=== PATIENT | male | born 1945 | race Caucasian/White ===

== ENCOUNTER 2018-06-08 05:33 | Day surgery (SDC) | payer OTHER ==
[~2018-06-08] VITALS: Ht 175.3 cm; Wt 84.4 kg
--- NOTE | ~2018-06-08 | PATH ---
[facility] [place] [address] PATHOLOGY RPT PROCEDURE Name: RICH CHOUDHURY Room #: DEP [facility] M..#: [id number] Admission: 06/08/18 Date of : 47 Discharge: 06/08/18 Report #: [id number] Path Case #: [id number] [facility] Accession Number: [id number] . 01 Material submitted: . PART A: TUMOR RIGHT MEDIAL CANTHUS - FS PART B: ADDITIONAL MEDIAL RIGHT CANTHUS TUMOR MARGIN . 01 Clinical history: . Possible basal cell carcinoma right medial canthus. . 02 Diagnosis: A. Skin, tumor right medial canthus, excision: - BASAL CELL CARCINOMA. - Margins of resection free of invasive malignancy. - MULTIFOCAL SUPERFICIAL BASAL CELL CARCINOMA. - TINY FOCUS OF SUPERFICIAL BASAL CELL CARCINOMA PRESENT AT MEDIAL/INFERIOR MARGIN. . B. Skin, additional medial right canthus margin, re-excision: - Mild chronic inflammation. - No residual malignancy present. . (IUV:dale; 06/09/2018) MBR/06/09/2018 . 02 Electronically signed: . Merle Reyes MD, Pathologist NPI- [id number] . 01 Gross description: . A. The specimen is received fresh from the OR labeled with the patient's name, "tumor right medial canthus " consists of a thin strip of skin measuring 2. 5 x 0.5 x 0.3 cm. It is oriented as superior, medial, inferior and lateral, these are designated 12:00, 3:00, 6:00, and 9:00 respectively. The 12:00, the 3:00-6:00 is inked black including the deep margin, the 6:00-9:00 is inked blue and the 9:00-12:00 is inked green. At this point specimen is serially sectioned into multiple pieces and submitted in entirety for frozen section as is FSA1. . B. The specimen is received fresh from the OR and labeled with the patient's name, "additional medial right canthus tumor margin" consists of a strip of skin measuring 0.7 x 0.2 x 0.3 cm. It is oriented as medial and inferior. The new margin of this specimen is inked blue. At this point specimen is serially sectioned. The old margin is not inked. The specimen is entirely submitted for permanent sections only as B1. . [address] [address] PATHOLOGY RPT PROCEDURE Name: RICH CHOUDHURY Room #: DEP [facility] Ricardo#: [id number] Admission: 06/08/18 Date of : 47 Discharge: 06/08/18 Report #: [id number] Path Case #: [id number] (IUV:at;06/08/2018) . . FROZEN SECTION DIAGNOSIS (Merle Reyes) . FSA1. Tumor right medial canthus, excision: - Invasive basal cell carcinoma, no invasive tumor at margins, superficial basal cell carcinoma at medial/inferior margin. . These findings are discussed with Dr. Blair Woodward in OR 6 and a written report is placed in the patient's chart. . (IUV:at;06/08/2018) . Frozen section performed at [facility], [address] [place] [address], [place] [address]. SY/SYC . 02 Pathologist provided ICD-10: C44.111, L08.9 . 02 CPT . 769575, 660476, [id number] Specimen Comment: A courtesy copy of this report has been sent to Specimen Comment: [phone]. Specimen Comment: Report sent to Performed at: [address], [place], [place] [id number] MD Bo Carlisle MD Phone: [phone] Performed at: [address], [place], [place] [id number] MD Merle Reyes MD Phone: [phone]
--- NOTE | ~2018-06-08 | O ---
[facility] [place] [address] [place] [address] OPERATIVE REPORT Name: RICH CHOUDHURY Room #: 150-14 [facility]..#: [id number] Admission: 06/08/18 Attend Phys: Blair Woodward MD Discharge: Date of : 47 Report #: [id number] THIS REPORT FOR: //name// CC: GORGE Galeano Physician staff Blair Woodward DATE OF SERVICE: 06/08/2018 PREOPERATIVE DIAGNOSIS: Tumor of right medial canthus. POSTOPERATIVE DIAGNOSIS: Basal cell carcinoma of right medial canthus, right upper lid and right lower lid. SURGEON: Blair Woodward M.D. SOCIAL SERVICES SPECIALIST: None. ANESTHESIA: MAC. COMPLICATIONS: None. INDICATIONS FOR SURGERY: This pleasant 73-year-old gentleman has a nodular ulcerative lesion that is in his medial canthus of the right eye that extends on to the medial most aspect of the upper and lower lids. He presents today for excision of this lesion with frozen sections and subsequent reconstruction of that defect. Informed consent was obtained to include but not limited to potential risk for loss of vision, bleeding, infection, failure to improve the problem, and the potential need for further surgery or treatment. DESCRIPTION OF PROCEDURE: The patient was taken to the operating room where 2% Xylocaine with epinephrine mixed with equal parts of 0.75% Marcaine with Wydase was administered transcutaneously to the right medial canthus, the right upper lid, the right lower lid and the glabella. The patient was subsequently prepped and draped in the usual sterile fashion. A fine tip skin marking pen was then utilized to outline the lesion, which appeared larger after it was injected because it made the underlying dermis more visible in the abnormal areas. The incisions were then made with a 15 blade, which extended across the angular artery. The lesion was then placed on a drawing for the waiting pathologist as hemostasis was achieved in the field. The pathologist snap froze that specimen and found that this was a multifocal basal cell that included several different lesions. She felt that there may have been a superficial focus of basal cell inferomedially, but suggested a permanent section of that tissue rather than another frozen section. [address] [address] OPERATIVE REPORT Name: RICH CHOUDHURY Room #: 150-14 [facility] M.R.#: [id number] Admission: 06/08/18 Attend Phys: Blair Woodward MD Discharge: Date of : 47 Report #: [id number] With that information in hand, an additional medial and inferior margin was then taken and oriented for her on a drawing. The defect at this point was larger than what had been originally anticipated. A myocutaneous flap was then developed to correct the inferior most portion of the wound. Hemostasis was re-achieved. The flap was then advanced and closed with interrupted buried Vicryl sutures deep and then 6-0 plain gut sutures superficially. The residual defect was then outlined in the lateral left upper lid into the infratemporal fossa. The incisions were then made with a 15 blade and a full thickness skin graft harvested utilizing thin section techniques. Hemostasis was achieved in that donor bed with monopolar cautery. That site was then closed with interrupted 6-0 chromic sutures and 6-0 plain gut sutures. The full thickness skin graft was then defatted. It was subsequently secured into its new site in the right upper lid bed with cardinal bites of 7-0 Vicryl suture and then 6-0 plain gut suture. The wound was then dressed with erythromycin ophthalmic ointment over all sutures on both sides. Ointment was then also placed on the eye. A Telfa pad was then placed on the eye followed by 2 eye pads, which was held in place with silk tape and Mastisol on the right side. The patient was subsequently transported to the recovery area having tolerated the procedures well with no anesthetic or operative complications being noted. By: [id number] Blair Woodward MD /nt
[~2018-06-08 05:33] MED LIST: CENTRUM SILVER1 EAC2 PO; FLOMAX0.4 MG PO; LUPRON DEPOT IM; VITAMIN E400 UNIT PO
[2018-06-08 10:48] VITALS: BP 149/60
== END 2018-06-08 14:27 | disposition home or self-care (01) ==
LOC: OR 05:33 → TBA 05:34 → OR 07:46
DX: C44.1121 Basal cell carcinoma of skin of right upper eyelid, including canthus (principal); C44.1122 Basal cell carcinoma of skin of right lower eyelid, including canthus; H01.8 Other specified inflammations of eyelid; N40.0 Benign prostatic hyperplasia without lower urinary tract symptoms; Z87.891 Personal history of nicotine dependence; Z85.46 Personal history of malignant neoplasm of prostate; Z90.49 Acquired absence of other specified parts of digestive tract; Z98.890 Other specified postprocedural states; Z79.899 Other long term (current) drug therapy
CPT/HCPCS: 50010; 50101; 50386; 50398; 51636; 56531; 62110; 62850; 70005